=== PATIENT | male | born 1970 | race Caucasian/White ===

== ENCOUNTER → 2018-12-29 07:09 | Outpatient (CLI) | payer OTHER, SELFPAY ==
[2018-12-29 08:07] LABS: Hematocrit 43.7 % (41-53); Mean Corpuscular HGB Conc 34.4 % (30-36); Mean Corpuscular Hemoglobin 29.1 PG (26-34); Mean Corpuscular Volume 84.8 fL (80-100); Platelet Count 219 X10^3/uL (150-400); Red Blood Cell Count 5.16 X10^6/uL (4.5-5.9); Red Cell Distribution Width 13.3 % (11.6-14.8); White Blood Cell Count 6.2 X10^3/uL (4.5-11.0)
[2018-12-29 08:26] LABS: Alanine Aminotransferase 50 IU/L (21-72); Albumin 4.9 g/dL (3.5-5.0); Albumin Globulin Ratio 1.9 (1.0-2.8); Alkaline Phosphatase 58 U/L (38-126); Aspartate Aminotransferase 34 IU/L (17-59); BUN Creatinine Ratio 18.2 (6-22); Bilirubin Total 0.7 mg/dL (0.2-1.3); Blood Urea Nitrogen 20 mg/dL (9-20); Calcium 10.5 mg/dL (8.4-10.2); Carbon Dioxide 32 mmol/L (22-32); Chloride 99 mmol/L (98-107); Cholesterol 259 mg/dL (140-199); Estimated Glomerular Filt Rate > 60.0 mL/min (>60); Globulin 2.6 g/dL (1.7-4.1); Glucose 105 mg/dL (70-100); HDL Cholesterol 28 mg/dL (40-60); HEMOLYSIS < 15 (0-50); LDL Cholesterol Calculated 159 mg/dL (<100); Potassium 5.2 mmol/L (3.4-5.1); Sodium 140 mmol/L (137-145); Total Protein 7.5 g/dL (6.3-8.2); Triglycerides 358 mg/dL (35-150)
[2018-12-29 08:37] LABS: Microalbumi Creatinin Ratio Ur 3.8 ug/mg CR (<30); Microalbumin Urine Random < 0.6 mg/dL (0-1.6)
== END ==
PROVIDERS: Visit Provider Nurse Practitioner Family
DX: Z13.6 Encounter for screening for cardiovascular disorders (principal); I10 Essential (primary) hypertension; R10.812 Left upper quadrant abdominal tenderness
CPT/HCPCS: 36415; 80053; 80061; 82043; 82570; 85027

== ENCOUNTER → 2019-01-07 12:26 | Outpatient (CLI) | payer OTHER, SELFPAY ==
[2019-01-09 14:40] LABS: Urea Breath Test >18YRS NOT DETECTED
== END ==
PROVIDERS: PCP Nurse Practitioner Family; Visit Provider Nurse Practitioner Family
DX: R10.812 Left upper quadrant abdominal tenderness (principal)
CPT/HCPCS: 83013

== ENCOUNTER → 2019-01-25 11:39 | Outpatient (CLI) | payer OTHER, SELFPAY ==
--- NOTE | 2019-01-25 11:40 | DI.US.S_ITS ---
PROCEDURE: US ABDOMEN COMPLETE INDICATIONS: LUQ PAIN TECHNIQUE: Real-time scanning was performed of the abdominal and retroperitoneal organs, with image documentation. COMPARISON: [facility], MR, ANGIO ABDOMEN WITH&WITHOUT CONTRAST, 04/03/2009, 14:59. FINDINGS: Liver: Liver is diffusely increased in echogenicity. No focal hepatic abnormalities identified. Normal hepatic size. Gallbladder: No gallstones identified. Normal gallbladder wall. No pericholecystic fluid. Negative sonographic Roldan sign. Biliary ducts: Intrahepatic bile ducts are non-dilated. Extrahepatic bile duct caliber measures 3.0 mm. Normal is 6-7 mm or less in diameter, or 10 mm or less post-cholecystectomy. Pancreas: Visualized portions of the pancreas are sonographically normal. Spleen: Spleen is normal in size and homogeneous in echotexture. Kidneys: Kidneys are normal in size and echotexture. Right kidney measures 12.8 cm long; left kidney measures 13.5 cm long. No hydronephrosis or nephrolithiasis. No solid masses. Aorta: Visualized aorta is normal in caliber at less than 3 cm. Iliacs: Proximal common iliac arteries are normal in caliber at less than 2.5 cm. IVC: Intrahepatic inferior vena cava is patent. Miscellaneous: No free abdominal fluid. IMPRESSION: Increased hepatic echogenicity noted possibly related to hepatic steatosis but other sources of hepatocellular disease cannot be excluded. Recommend clinical correlation. Dictated by: Alber DEMARCO Interpreted: Tiffanie Perdue MD on 01/25/2019 at 13:12 Approved by: Tiffanie Perdue MD, PhD on 01/25/2019 at 13:56
== END ==
PROVIDERS: PCP Nurse Practitioner Family; Visit Provider Nurse Practitioner Family
DX: R10.812 Left upper quadrant abdominal tenderness (principal)
CPT/HCPCS: 76700

== ENCOUNTER 2019-03-15 07:19 | Day surgery (SDC) | payer OTHER, SELFPAY ==
[2019-03-04 07:27] VITALS: BMI 34.2
[2019-03-15] VITALS (11 sets, daily range): BP systolic 135–167; BP diastolic 81–105; PULSE 65–90; RESP 10–20; TEMP 35.8–36.4; O2SAT 96–100; BMI 32.1
--- NOTE | 2019-03-15 | PATH_ITS ---
[facility] Accession Number: [id number] . 01 Material submitted: . back - BACK . 01 Clinical history: . SOFT TISSUE MASS . 01 Diagnosis: Soft Tissue, Back, Excision: Lipoma with degenrative changes. MRV 03/17/2019 1436 Local . 01 Electronically signed: . Carmen Owen MD, Pathologist NPI- [id number] . 01 Gross description: . Received in formalin, labeled back soft tissue mass, is a 10.5 x 8.7 x 3.7 cm nunn-yellow fatty mass with a homogeneous unremarkable cut surface. Allied [employer] Instructor tissue submitted in cassettes A1-A5. ([id number]) /MRV 03/16/2019 1058 Local . 01 Pathologist provided ICD-10: D17.9 . 01 CPT . 641040 Performed at: 01 [facility] [place] [address], [place], [place] [id number] MD Rickey Lovell MD Phone: [phone]
[2019-03-15] MEDS: LACTATED RINGERS 1,000 ML 100 ML IV (07:45)
--- NOTE | 2019-03-15 08:59 | PM.HP.1 ---
History of Present Illness History of Present Illness Date Patient Seen: 03/15/19 Time Patient Seen: 09:00 Chief complaint: [id number] Narrative: 03/15/19-No interval changes in health since last H&P December 2018-This is a 48-year-old male who presents for evaluation of a soft tissue mass of his left back. He has a slowly growing symptomatic soft tissue mass overlying his left scapula. I would its size is now causing pain and interference with his work and his physical activity. No history of personal malignancy. No left upper extremity weakness or numbness. No history of coronary artery disease, valvular disease, arrhythmia, peripheral vascular disease, diabetes, stroke, pulmonary or renal insufficiency. They are a former smoker and not on anticoagulation Patient History Medical History BMI 34.0-34.9,adult (Acute) Chickenpox (Acute ~1987) Essential hypertension (Acute ~2014) Fractures (Acute ~1998) Left upper quadrant abdominal tenderness (Acute 2016) Mixed hyperlipidemia (Acute 01/07/19) MRSA (methicillin resistant staph aureus) culture positive (Acute ~2005) Subcutaneous nodule of back (Acute 2011) Varicose veins of left lower extremity (Acute 2008) Family & Social History Family History Father Hypertension Stroke Heart disease Mother No problems noted. Social History: household members spouse Tobacco & Substance use: Smoking Status Former smoker alcohol intake current alcohol intake frequency a few times a week Substance Use Type former substance user,crack/cocaine,amphetamines ,other Meds Home Medications and Allergies Home Medications Medication Instructions Recorded Confirmed Type cholecalciferol (vitamin D3) 50 2,000 unit PO DAILY 01/13/18 03/15/19 History mcg (2,000 unit) capsule multivitamin with minerals 1 tab PO DAILY 01/13/18 03/15/19 History omega-3 fatty acids 1,000 mg 1,000 mg PO DAILY 01/13/18 03/15/19 History capsule vitamin B complex 1 tab PO DAILY 01/13/18 03/15/19 History flaxseed oil 1,000 mg capsule 1,000 mg PO DAILY 12/28/18 03/15/19 History atorvastatin 20 mg tablet 20 mg PO BEDTIME #90 tab 01/07/19 03/15/19 Rx ibuprofen 200 mg tablet 600 mg PO DAILY PRN tab 01/07/19 03/15/19 History lisinopril 20 mg tablet 20 mg PO DAILY #90 tab 02/11/19 03/15/19 Rx lisinopril 20 1 tab PO DAILY #90 tab 02/11/19 03/15/19 Rx mg-hydrochlorothiazide 12.5 mg tablet Allergies Allergy/AdvReac Type Severity Reaction Status Date / Time No Known Drug Allergies Allergy Unverified 02/11/19 11:15 Review of Systems Review of Systems Narrative: A 10 point review of systems is negative except as noted in the HPI Exam Vital Signs (past 8 hours): - 03/15/19 07:45 Temperature 97.4 F L Pulse Rate 69 Respiratory Rate 16 Blood Pressure 135/81 Pulse Oximetry 100 Oxygen Delivery Method Room Air Narrative Exam Narrative: General-no acute distress, well nourished HEENT-moist mucous membranes, no scleral icterus Neck-supple, no lymphadenopathy Chest- non labored respirations, clear to auscultation bilaterally Cardiac-regular rate no peripheral edema Abdomen-soft, nontender, non distended Extremities-warm, well perfused Neurological-alert and oriented, no focal deficits Assessment & Plan Assessment and plan (1) Benign neoplasm of soft tissue of back: Current visit: No Status: Acute Assessment & Plan narrative: 48-year-old male with a large superficial soft tissue mass of his left upper back here for excision. His questions have been answered he is in agreement with this plan. Please refer to the H& P from December of 2018 for further detail.
[2019-03-15] MEDS: CEFAZOLIN 2 GM/100 ML FROZ.PIGGY IV (09:10)
--- NOTE | 2019-03-15 09:34 | SUR.OPER ---
Right lateral on rivera bag, head on pillow, gel axillary roll in place, bottom leg bent with gel pad under knee to foot, upper leg straight and supported with pillows. Upper arm supported by pillows and secured over bottom arm to padded arm board. Safety belt at hip, tape over blanket lower legs.
[2019-03-15] MEDS: BUPIVACAINE 0.25% (PF) VIAL 30 ML INJ (09:49)
[2019-03-15] MEDS: fentaNYL 100 MCG/2 ML INJ IV (10:35)
[2019-03-15] MEDS: HYDROCODONE/ACET 5/325 TABLET 1 TAB PO (10:48)
--- NOTE | 2019-03-15 10:50 | PM.OP.1 ---
Operative Date/Time/Diagnoses Date of procedure: 03/15/19 Time of procedure: 10:50 Pre-op diagnosis: Lipoma back Post-op diagnosis: same Procedure & Clinicians Procedure: Excision soft tissue tumor left back Same procedure as scheduled: Yes Indications: This 48-year-old male with a slowly enlarging soft tissue mass of his left back near the scapula currently symptomatic. Surgeon: Umesh Jackson Click Yes if Unassisted: Yes Anesthesia Type: General Operative Notes Findings: 5 in soft tissue mass consistent with a lipoma Specimen(s): other (Soft tissue mass) Estimated Blood Loss (mL): 20 Procedure in detail: The patient was brought to the operating room placed supine on the table. Bilateral lower extremity compression devices were applied. General anesthesia was induced and he was intubated with an LMA. 2 g of Ancef were infused prior to skin incision. Time-out was performed ensure the correct patient procedure necessary equipment within the operating room. He was then placed in the right lateral decubitus position. Was then prepped and draped in usual sterile fashion. A horizontal incision was made over the soft tissue mass. The mass was well encapsulated and superficial to the musculature. Was dissected circumferentially in all directions. There was removed EN bloc and passed off the field as specimen. Measured 5 inches in maximum diameter Hemostasis was achieved. The wound was irrigated with 1 L sterile saline. The subcutaneous tissues were reapproximated using 3 0 Vicryl sutures. The skin closed with interrupted mattress nylon sutures. The skin was dressed with Xeroform gauze and Medipore tape. Patient tolerated procedure well was extubated transferred to the postoperative care unit in stable condition. Complications: none Post-operative Condition: stable Disposition: same day surgery
== END 2019-03-15 11:30 | disposition home or self-care (01) ==
PROVIDERS: PCP Nurse Practitioner Family; Visit Provider Surgery
PROC: (CPT 21931; principal; 2019-03-15 08:45)
DX: D17.1 Benign lipomatous neoplasm of skin and subcutaneous tissue of trunk (principal); I10 Essential (primary) hypertension; E66.9 Obesity, unspecified; Z68.34 Body mass index [BMI] 34.0-34.9, adult
CPT/HCPCS: 21931; J0690; J1100; J2405; J2704; J3010

== ENCOUNTER 2019-03-21 07:22 | Day surgery (SDC) | payer OTHER, SELFPAY ==
--- NOTE | 2019-03-21 | PATH_ITS ---
[facility] Accession Number: [id number] . 01 Material submitted: . esophagus, E-G Junction - GE JUNCTION . 02 Diagnosis: Gastroesophageal Junction, Biopsies: Squamocolumnar junction mucosa with mild reactive features of reflux esophagitis. Negative for specialized intestinal metaplasia on alcian blue stain. Negative for dysplasia or malignancy. V 03/23/2019 1208 Local . 02 Electronically signed: . Jordan Oliver MD, PhD, Pathologist NPI- [id number] . 01 Gross description: . GE JUNCTION: Received in formalin are 3 fragment(s) of nunn, soft tissue measuring 0.1 x 0.1 x 0.1 cm to 0.2 x 0.2 x 0.2 cm submitted entirely in 1 cassette(s) /[facility] 03/21/2019 1936 Local . 02 Microscopic: . An alcian blue stain is performed to evaluate for specialized intestinal metaplasia, and is negative for goblet cells. A control stain shows appropriate reactivity. . 02 Pathologist provided ICD-10: K21.9 . 02 CPT . 213717, [id number] Performed at: 01 [facility] [address] [place] [address], [place], [place] [id number] MD Rickey Lovell MD Phone: [phone] Performed at: 02 [facility] [address] [place], [place] [id number] MD Ana Piedra MD Phone: [phone]
[2019-03-21 07:50] VITALS: BP 106/69; PULSE 74; RESP 15; TEMP 36.6; O2SAT 98
[2019-03-21] MEDS: SODIUM CHLORIDE 0.9% 1,000 ML 200 ML IV (08:03)
--- NOTE | 2019-03-21 08:39 | PM.PREOP ---
Pre-operative Note Interval Note History & Physical reviewed/Exam performed by Physician: Yes Changes to H&P: No ASA Class (for procedural sedation): II
--- NOTE | 2019-03-21 09:26 | P.OP.ENDO_ITS ---
Operative Date/Time/Diagnoses Date of procedure: 03/21/19 Time of procedure: 09:27 Pre-op diagnosis: Screening colonoscopy, screening esophagoduodenoscopy, gastroesophageal reflux disease Post-op diagnosis: same Procedure & Clinicians Study performed: Colonoscopy Esophagoduodenoscopy Same procedure as scheduled: Yes Indications: 48-year-old male history of longstanding gastroesophageal reflux presents for screening EGD and first-time colonoscopy. Surgeon: Umesh Jackson Procedure Notes SCOAP/Timeout: Performed Procedure in detail: Patient placed in left lateral decubitus position. Time out was performed. Procedural sedation was administered with Versed and Fentanyl. A bite block was placed. the scope was inserted into the mouth and advanced through the esophagus and into the stomach. The pylorus was intubated and the duodenum was normal. The scope was retroflexed within the stomach and there was a hiatal hernia. No ulcers, or gastritis. The scope was withdrawn into the esophagus the Z line was seen at 35 cm from the incisions. There was no jain's esophagitis or masses or strictures. 4 random biopsies of the Z line were taken with forceps. Stomach was desufflated and scope removed. Patient maria eugenia erated procedure well. Patient placed in left lateral decubitus position. Time out was performed. Procedural sedation was administered with Versed and Fentanyl. A rectal exam demonstrated no external hemorrhoids no internal masses. Colonoscopy scope was placed into the rectum and advanced through the colon to the cecum. The ileocecal valve was identified. The scope was then slowly withdrawn examining colon thoroughly in all directions. The colonoscopy was notable for the following 1. Sigmoid diverticulosis 2. Grade 1 internal hemorrhoids 3. Quality of prep excellent Scope withdrawal time: 6 Sedation minutes: 30 Findings: diverticulosis and internal hemorrhoids Specimen(s): none sent Complications: none Impression: Diverticulosis Post-procedure Recommendations: Colonscopy in 10 years Disposition: same day surgery
[2019-03-21] MEDS: LIDOCAINE 4% SOLN 50 ML 20 ML TOP (09:28)
[2019-03-21] MEDS: fentaNYL 250 MCG/5 ML INJ IV (09:29)
[2019-03-21] MEDS: MIDAZOLAM 5 MG/5 ML VIAL IV (09:29)
[2019-03-21 09:31] VITALS: BP 131/88; PULSE 82; RESP 22; TEMP 36.4; O2SAT 94
[2019-03-21 09:36] VITALS: BP 124/75; PULSE 70; RESP 10; O2SAT 92
[2019-03-21 09:41] VITALS: BP 107/65; PULSE 88; RESP 13; O2SAT 96
[2019-03-21 09:43] VITALS: BP 110/75; PULSE 85; RESP 10; TEMP 37.3; O2SAT 95
[2019-03-21 10:05] VITALS: BP 107/63; PULSE 77; RESP 12; TEMP 36.5; O2SAT 98
--- NOTE | 2019-04-11 13:06 | PM.HP.1 ---
History of Present Illness History of Present Illness Date Patient Seen: 03/21/19 Time Patient Seen: 13:06 Chief complaint: [id number] Narrative: Patient presents for colorectal screening. They have never had any previous examination for such. In addition he has significant gastroesophageal reflux disease for which esophagoduodenoscopy has been recommended. No personal or family history of colon cancer. On further history denies any recent gastrointestinal symptoms. No nausea, vomiting, abdominal pain, loss of appetite, unexplained weight loss, change in bowel habits, diarrhea, constipation, melena, hematochezia, or bright red blood per rectum. Patient History Medical History BMI 34.0-34.9,adult (Acute) Chickenpox (Acute ~1987) Essential hypertension (Acute ~2014) Fractures (Acute ~1998) Left upper quadrant abdominal tenderness (Acute 2016) Mixed hyperlipidemia (Acute 01/07/19) MRSA (methicillin resistant staph aureus) culture positive (Acute ~2005) Subcutaneous nodule of back (Acute 2011) Varicose veins of left lower extremity (Acute 2008) Family & Social History Family History Father Hypertension Stroke Heart disease Mother No problems noted. Social History: household members significant other Tobacco & Substance use: Smoking Status Former smoker alcohol intake current alcohol intake frequency a few times a week Substance Use Type former substance user,crack/cocaine,amphetamines ,other Meds Home Medications and Allergies Home Medications Medication Instructions Recorded Confirmed Type cholecalciferol (vitamin D3) 50 2,000 unit PO DAILY 01/13/18 03/30/19 History mcg (2,000 unit) capsule multivitamin with minerals 1 tab PO DAILY 01/13/18 03/30/19 History omega-3 fatty acids 1,000 mg 1,000 mg PO DAILY 01/13/18 03/30/19 History capsule vitamin B complex 1 tab PO DAILY 01/13/18 03/30/19 History flaxseed oil 1,000 mg capsule 1,000 mg PO DAILY 12/28/18 03/30/19 History ibuprofen 200 mg tablet 600 mg PO DAILY PRN tab 01/07/19 03/30/19 History lisinopril 20 mg tablet 20 mg PO DAILY #90 tab 02/11/19 03/30/19 Rx acetaminophen [Tylenol] 650 mg PO QID PRN #60 cap 03/15/19 03/30/19 Rx atorvastatin 20 mg PO DAILY 03/21/19 03/30/19 History lisinopril 20 1 tab PO DAILY #90 tab 03/29/19 03/30/19 Rx mg-hydrochlorothiazide 12.5 mg tablet Allergies Allergy/AdvReac Type Severity Reaction Status Date / Time adhesive tape Allergy Intermediate Rash, Verified 03/30/19 09:19 redness skin Review of Systems Review of Systems Narrative: A 10 point review of systems is negative except as noted in the HPI Exam Vital Signs (past 8 hours): Oxygen Delivery Method Room Air Narrative Exam Narrative: General-no acute distress, well nourished HEENT-moist mucous membranes, no scleral icterus Neck-supple, no lymphadenopathy Chest- non labored respirations, clear to auscultation bilaterally Cardiac-regular rate no peripheral edema Abdomen-soft, nontender, non distended Extremities-warm, well perfused Neurological-alert and oriented, no focal deficits Assessment & Plan Assessment and plan (1) Screening for colon cancer: Current visit: No Status: Acute (2) GERD (gastroesophageal reflux disease): Current visit: No Status: Acute Assessment & Plan narrative: The patient requires colorectal screening and colonoscopy is recommended. In addition he has significant symptomatic gastroesophageal reflux disease and esophagoduodenoscopy is indicated. Technical details were discussed. Risks, benefits, alternatives explained. Risks including but not limited to myocardial infarction, aspiration, bleeding, pain, missed lesion, incomplete examination, need for further radiographic studies, colonic perforation, and need for major abdominal surgery were discussed. All questions were answered to their satisfaction, and they are in agreement with this plan.
== END 2019-03-21 10:07 | disposition home or self-care (01) ==
PROVIDERS: PCP Nurse Practitioner Family; Visit Provider Surgery
PROC: 0DJ08ZZ Inspection of Upper Intestinal Tract, Via Natural or Artificial Opening Endoscopic (ICD-10-PCS; CPT 43235; principal; 2019-03-21 08:30)
PROC: 0DJD8ZZ Inspection of Lower Intestinal Tract, Via Natural or Artificial Opening Endoscopic (ICD-10-PCS; CPT 45378; 2019-03-21 08:30)
DX: Z12.11 Encounter for screening for malignant neoplasm of colon (principal); K57.30 Diverticulosis of large intestine without perforation or abscess without bleeding; K64.0 First degree hemorrhoids; K21.9 Gastro-esophageal reflux disease without esophagitis; K44.9 Diaphragmatic hernia without obstruction or gangrene
CPT/HCPCS: 43239; 45378; 99152; 99153; J2250; J3010

== ENCOUNTER → 2019-10-21 07:32 | Outpatient (CLI) | payer OTHER, SELFPAY ==
[2019-10-21 09:10] LABS: BUN Creatinine Ratio 17.3 (6-22); Blood Urea Nitrogen 19 mg/dL (9-20); Calcium 10.1 mg/dL (8.4-10.2); Carbon Dioxide 25 mmol/L (22-32); Chloride 99 mmol/L (98-107); Cholesterol 196 mg/dL (140-199); Estimated Glomerular Filt Rate > 60.0 mL/min (>60); Glucose 98 mg/dL (70-100); HDL Cholesterol 32 mg/dL (40-60); HEMOLYSIS < 15 (0-50); LDL Cholesterol Calculated 108 mg/dL (<100); Potassium 4.7 mmol/L (3.4-5.1); Sodium 134 mmol/L (137-145); Triglycerides 281 mg/dL (35-150)
== END ==
PROVIDERS: PCP Nurse Practitioner Family; Referring Provider Nurse Practitioner Family; Visit Provider Nurse Practitioner Family
DX: I10 Essential (primary) hypertension (principal); E78.2 Mixed hyperlipidemia
CPT/HCPCS: 36415; 80048; 80061

== ENCOUNTER → 2020-04-03 07:12 | Outpatient (CLI) | payer OTHER, SELFPAY ==
[2020-04-03 09:04] LABS: Hematocrit 42.4 % (41-53); Hemoglobin 14.1 g/dL (13.5-17.5); Mean Corpuscular HGB Conc 33.3 % (30-36); Mean Corpuscular Hemoglobin 28.6 PG (26-34); Mean Corpuscular Volume 85.9 fL (80-100); Platelet Count 225 X10^3/uL (150-400); Red Blood Cell Count 4.93 X10^6/uL (4.5-5.9); Red Cell Distribution Width 13.3 % (11.6-14.8); White Blood Cell Count 8.3 X10^3/uL (4.5-11.0)
[2020-04-03 09:18] LABS: HEMOLYSIS < 15 (0-50)
[2020-04-03 09:28] LABS: Alanine Aminotransferase 46 IU/L (<50); Albumin 4.4 g/dL (3.5-5.0); Albumin Globulin Ratio 1.5 (1.0-2.8); Alkaline Phosphatase 53 U/L (38-126); Aspartate Aminotransferase 31 IU/L (17-59); BUN Creatinine Ratio 23.2 (6-22); Bilirubin Total 0.3 mg/dL (0.2-1.3); Blood Urea Nitrogen 22 mg/dL (9-20); Calcium 9.6 mg/dL (8.4-10.2); Carbon Dioxide 28 mmol/L (22-32); Chloride 102 mmol/L (98-107); Cholesterol 200 mg/dL (140-199); Estimated Glomerular Filt Rate > 60.0 mL/min (>60); Globulin 2.9 g/dL (1.7-4.1); Glucose 101 mg/dL (70-100); HDL Cholesterol 36 mg/dL (40-60); LDL Cholesterol Calculated 122 mg/dL (<100); Potassium 4.5 mmol/L (3.4-5.1); Sodium 137 mmol/L (137-145); Total Protein 7.3 g/dL (6.3-8.2); Triglycerides 212 mg/dL (35-150)
[2020-04-03 09:54] LABS: Prostate Specific Antigen Scrn 2.03 ng/mL (0.1-4.0)
[2020-04-03 10:28] LABS: TSH w/ Reflex to FT4 1.65 uIU/mL (0.47-4.68)
[2020-04-03 10:34] LABS: Vitamin B12 Reflex MMA if <400 805 pg/mL (239-931)
[2020-04-05 15:58] LABS: Testosterone 143 ng/dL (71.8-623)
== END ==
PROVIDERS: PCP Nurse Practitioner Family; Referring Provider Nurse Practitioner Family; Visit Provider Nurse Practitioner Family
DX: Z00.00 Encounter for general adult medical examination without abnormal findings (principal); R53.83 Other fatigue; R68.82 Decreased libido; E78.2 Mixed hyperlipidemia; Z12.5 Encounter for screening for malignant neoplasm of prostate
CPT/HCPCS: 36415; 80053; 80061; 82607; 84403; 84443; 85027; G0103

== ENCOUNTER → 2020-04-18 07:15 | Outpatient (CLI) | payer OTHER, SELFPAY ==
[2020-04-18 08:38] LABS: Cholesterol 198 mg/dL (140-199); HDL Cholesterol 34 mg/dL (40-60); LDL Cholesterol Calculated 109 mg/dL (<100); Triglycerides 273 mg/dL (35-150)
[2020-04-18 09:07] LABS: Luteinizing Hormone 1.05 mIU/mL
[2020-04-18 09:13] LABS: Testosterone 245 ng/dL (71.8-623)
== END ==
PROVIDERS: PCP Nurse Practitioner Family; Referring Provider Nurse Practitioner Family; Visit Provider Nurse Practitioner Family
DX: R79.89 Other specified abnormal findings of blood chemistry (principal); E78.2 Mixed hyperlipidemia
CPT/HCPCS: 36415; 80061; 83001; 83002; 84403

== ENCOUNTER → 2020-04-26 15:52 | Outpatient (CLI) | payer OTHER, SELFPAY ==
[2020-04-26 17:54] LABS: Prostate Specific Antigen Scrn 2.08 ng/mL (0.1-4.0)
== END ==
PROVIDERS: PCP Nurse Practitioner Family; Referring Provider Nurse Practitioner Family; Visit Provider Nurse Practitioner Family
DX: R79.89 Other specified abnormal findings of blood chemistry (principal); Z12.5 Encounter for screening for malignant neoplasm of prostate
CPT/HCPCS: 36415; G0103

== ENCOUNTER → 2020-07-07 10:05 | Outpatient (CLI) | payer OTHER, SELFPAY ==
[2020-07-07 10:36] LABS: Hematocrit 42.8 % (41-53); Hemoglobin 14.4 g/dL (13.5-17.5); Mean Corpuscular HGB Conc 33.6 % (30-36); Mean Corpuscular Volume 86.3 fL (80-100); Platelet Count 203 X10^3/uL (150-400); Red Blood Cell Count 4.97 X10^6/uL (4.5-5.9); Red Cell Distribution Width 13.7 % (11.6-14.8); White Blood Cell Count 8.4 X10^3/uL (4.5-11.0)
[2020-07-09 10:53] LABS: Prostate Specific Antigen Scrn 2.53 ng/mL (0.1-4.0)
[2020-07-09 10:55] LABS: Testosterone 310 ng/dL (71.8-623)
== END ==
PROVIDERS: PCP Nurse Practitioner Family; Referring Provider Nurse Practitioner Family; Visit Provider Nurse Practitioner Family
DX: R79.89 Other specified abnormal findings of blood chemistry (principal)
CPT/HCPCS: 36415; 84403; 85027; G0103

== ENCOUNTER → 2020-10-05 07:49 | Outpatient (CLI) | payer OTHER, SELFPAY ==
[2020-10-05 09:41] LABS: Alanine Aminotransferase 48 IU/L (<50); Albumin 4.2 g/dL (3.5-5.0); Albumin Globulin Ratio 1.6 (1.0-2.8); Alkaline Phosphatase 48 U/L (38-126); Aspartate Aminotransferase 35 IU/L (17-59); BUN Creatinine Ratio 15.8 (6-22); Bilirubin Total 0.4 mg/dL (0.2-1.3); Blood Urea Nitrogen 16 mg/dL (9-20); Calcium 10.1 mg/dL (8.4-10.2); Carbon Dioxide 31 mmol/L (22-32); Chloride 100 mmol/L (98-107); Estimated Glomerular Filt Rate > 60.0 mL/min (>60); Globulin 2.6 g/dL (1.7-4.1); Glucose 99 mg/dL (70-100); HEMOLYSIS < 15 (0-50); Potassium 4.8 mmol/L (3.4-5.1); Sodium 137 mmol/L (137-145); Total Protein 6.8 g/dL (6.3-8.2)
[2020-10-05 10:09] LABS: Testosterone 398 ng/dL (71.8-623)
== END ==
PROVIDERS: PCP Nurse Practitioner Family; Referring Provider Nurse Practitioner Family; Visit Provider Nurse Practitioner Family
DX: I10 Essential (primary) hypertension (principal); R79.89 Other specified abnormal findings of blood chemistry
CPT/HCPCS: 36415; 80053; 84403

== ENCOUNTER → 2021-12-03 09:11 | Outpatient (CLI) | payer OTHER, SELFPAY ==
[2021-12-03 10:35] LABS: Add Manual Diff / Slide Review NO; Basophils Absolute Auto 0 /uL (0-100); Basophils Percent Auto 0.5 % (0-2); Eosinophils Absolute Auto 0 /uL (0-450); Eosinophils Percent Auto 0.7 % (2-4); Hematocrit 48.1 % (41-53); Hemoglobin 15.9 g/dL (13.5-17.5); Lymphocytes Absolute Auto 2000 /uL (1100-4500); Lymphocytes Percent Auto 30.9 % (25-40); Mean Corpuscular HGB Conc 33.1 % (30-36); Mean Corpuscular Hemoglobin 28.4 PG (26-34); Mean Corpuscular Volume 86.1 fL (80-100); Monocytes Absolute Auto 500 /uL (0-900); Monocytes Percent Auto 7.5 % (3-14); Neutrophils Absolute Auto 3900 /uL (1500-7000); Neutrophils Percent Auto 60.4 % (50-75); Platelet Count 214 X10^3/uL (150-400); Red Blood Cell Count 5.59 X10^6/uL (4.5-5.9); Red Cell Distribution Width 14.1 % (11.6-14.8); White Blood Cell Count 6.5 X10^3/uL (4.5-11.0)
[2021-12-03 11:01] LABS: Alanine Aminotransferase 54 IU/L (<50); Albumin 4.9 g/dL (3.5-5.0); Albumin Globulin Ratio 1.4 (1.0-2.8); Alkaline Phosphatase 52 U/L (38-126); Aspartate Aminotransferase 35 IU/L (17-59); BUN Creatinine Ratio 18.4 (6-22); Bilirubin Total 0.6 mg/dL (0.2-1.3); Blood Urea Nitrogen 19 mg/dL (9-20); Calcium 9.9 mg/dL (8.4-10.2); Carbon Dioxide 32 mmol/L (22-32); Chloride 94 mmol/L (98-107); Cholesterol 221 mg/dL (140-199); Estimated Glomerular Filt Rate > 60 mL/min (>60); Globulin 3.5 g/dL (1.7-4.1); Glucose 102 mg/dL (70-100); HDL Cholesterol 36 mg/dL (40-60); HEMOLYSIS < 15 (0-50); LDL Cholesterol Calculated 122 mg/dL (<100); Potassium 4.5 mmol/L (3.4-5.1); Sodium 137 mmol/L (137-145); Total Protein 8.4 g/dL (6.3-8.2); Triglycerides 316 mg/dL (35-150)
[2021-12-03 11:29] LABS: Prostate Specific Antigen 2.62 ng/mL (0.10-4.00)
[2021-12-20 10:17] LABS: Testosterone Free 12.78 ng/dL (5.00-21.00); Testosterone Total 399.3 ng/dL (264.0-916.0)
== END ==
PROVIDERS: PCP Family Medicine; Referring Provider Family Medicine; Visit Provider Family Medicine
DX: E78.2 Mixed hyperlipidemia (principal); I10 Essential (primary) hypertension; R53.83 Other fatigue; R79.89 Other specified abnormal findings of blood chemistry; Z68.34 Body mass index [BMI] 34.0-34.9, adult; Z13.9 Encounter for screening, unspecified; Z12.5 Encounter for screening for malignant neoplasm of prostate
CPT/HCPCS: 36415; 80053; 80061; 84153; 84402; 84403; 85025

== ENCOUNTER → 2022-01-29 09:43 | Outpatient (CLI) | payer OTHER, SELFPAY ==
[2022-01-29 10:53] LABS: Influenza A - CEPHEID Flu A NEGATIVE (NEGATIVE); Influenza B - CEPHEID Flu B NEGATIVE (NEGATIVE); Respiratory Syncytial Virus Negative (Negative)
[2022-01-29 11:25] LABS: COVID-19 CEPHEID 4-PLEX PCR Negative (Negative)
== END ==
PROVIDERS: PCP Family Medicine; Visit Provider Nurse Practitioner Family
DX: R05.9 Cough, unspecified (principal)
CPT/HCPCS: 0241U

== ENCOUNTER → 2022-03-18 09:19 | Outpatient (CLI) | payer OTHER, SELFPAY ==
--- NOTE | 2022-03-18 | DI.CT.S_ITS ---
PROCEDURE: CT SINUS SCREEN WO CON INDICATIONS: Chronic pansinusitis TECHNIQUE: Noncontrast 3.0 mm axial images acquired from the frontal sinuses to the mid-sella, with coronal and sagittal reformats. For radiation dose reduction, the following was used: automated exposure control, adjustment of mA and/or kV according to patient size. COMPARISON: None. FINDINGS: Image quality: Excellent. Maxillary Sinuses: No bony remodeling or destruction. There is a left maxillary sinus mucous retention cyst seen, with a calcified/ossified wall, as on series 4, image 22 measuring 1.5 cm. The maxillary sinuses otherwise appear clear. Ethmoid Air Cells: No bony remodeling or destruction. Sinuses are clear. Sphenoid Sinuses: No bony remodeling or destruction. Sinuses are clear. Frontal Sinuses: No bony remodeling or destruction. Sinuses are clear. Ostiomeatal Complexes: Ostiomeatal complexes are patent, yet they are constitutionally narrowed with bilateral Gilberto cells. Miscellaneous: Visualized intra-orbital contents are normal. No mahogany bullosa or paradoxical turbinate curvature. There is mild leftward nasal septal deviation. There is a leftward directed bony nasal septal spur. IMPRESSION: No findings of active sinusitis can be seen. There is an apparent mucous retention cyst with a calcified/ossified wall involving the left maxillary sinus. Constitutionally narrowed ostiomeatal complexes, with bilateral Gilberto cells. Mild leftward nasal septal deviation, with a leftward directed bony nasal septal spur. Dictated by: Jace Solano M.D. on 03/18/2022 at 9:08 Approved by: Jace Solano M.D. on 03/18/2022 at 9:09
== END ==
PROVIDERS: PCP Family Medicine; Referring Provider Otolaryngology; Visit Provider Otolaryngology
DX: J32.4 Chronic pansinusitis (principal); J34.1 Cyst and mucocele of nose and nasal sinus; J34.2 Deviated nasal septum
CPT/HCPCS: 70486

== ENCOUNTER → 2022-05-01 08:38 | Outpatient (CLI) | payer OTHER, SELFPAY ==
[2022-05-01 09:56] LABS: Add Manual Diff / Slide Review NO; Basophils Absolute Auto 100 /uL (0-100); Basophils Percent Auto 0.9 % (0-2); Eosinophils Absolute Auto 100 /uL (0-450); Eosinophils Percent Auto 1.2 % (2-4); Hematocrit 45.3 % (41-53); Hemoglobin 15.3 g/dL (13.5-17.5); Lymphocytes Absolute Auto 2300 /uL (1100-4500); Lymphocytes Percent Auto 30.9 % (25-40); Mean Corpuscular HGB Conc 33.6 % (30-36); Mean Corpuscular Hemoglobin 28.7 PG (26-34); Mean Corpuscular Volume 85.4 fL (80-100); Monocytes Absolute Auto 700 /uL (0-900); Monocytes Percent Auto 8.7 % (3-14); Neutrophils Absolute Auto 4400 /uL (1500-7000); Neutrophils Percent Auto 58.3 % (50-75); Platelet Count 219 X10^3/uL (150-400); Red Blood Cell Count 5.31 X10^6/uL (4.5-5.9); Red Cell Distribution Width 13.6 % (11.6-14.8); White Blood Cell Count 7.6 X10^3/uL (4.5-11.0)
[2022-05-01 10:18] LABS: Alanine Aminotransferase 55 IU/L (<50); Albumin 4.6 g/dL (3.5-5.0); Albumin Globulin Ratio 1.5 (1.0-2.8); Alkaline Phosphatase 54 U/L (38-126); Aspartate Aminotransferase 36 IU/L (17-59); Bilirubin Total 0.5 mg/dL (0.2-1.3); Blood Urea Nitrogen 19 mg/dL (9-20); Calcium 9.9 mg/dL (8.4-10.2); Carbon Dioxide 30 mmol/L (22-32); Chloride 98 mmol/L (98-107); Cholesterol 196 mg/dL (140-199); Estimated Glomerular Filt Rate > 60 mL/min (>60); Glucose 92 mg/dL (70-100); HDL Cholesterol 36 mg/dL (40-60); HEMOLYSIS < 15 (0-50); LDL Cholesterol Calculated 104 mg/dL (<100); Potassium 4.9 mmol/L (3.4-5.1); Sodium 137 mmol/L (137-145); Total Protein 7.6 g/dL (6.3-8.2); Triglycerides 281 mg/dL (35-150)
[2022-05-01 10:45] LABS: Prostate Specific Antigen 2.91 ng/mL (0.10-4.00)
[2022-05-15 09:14] LABS: Percent Free Testosterone 2.71 % (1.50-4.20); Testosterone Free 18.25 ng/dL (5.00-21.00); Testosterone Total 673.3 ng/dL (264.0-916.0)
== END ==
PROVIDERS: PCP Family Medicine; Referring Provider Family Medicine; Visit Provider Family Medicine
DX: E78.2 Mixed hyperlipidemia (principal); I10 Essential (primary) hypertension; R79.89 Other specified abnormal findings of blood chemistry
CPT/HCPCS: 36415; 80053; 80061; 84153; 84402; 84403; 85025

== ENCOUNTER → 2022-12-24 07:39 | Outpatient (CLI) | payer OTHER, SELFPAY ==
[2022-12-24 08:33] LABS: Add Manual Diff / Slide Review NO; Basophils Absolute Auto 100 /uL (0-100); Basophils Percent Auto 0.9 % (0-2); Eosinophils Absolute Auto 100 /uL (0-450); Hematocrit 43.1 % (41-53); Hemoglobin 14.5 g/dL (13.5-17.5); Lymphocytes Absolute Auto 1700 /uL (1100-4500); Lymphocytes Percent Auto 29.8 % (25-40); Mean Corpuscular HGB Conc 33.7 % (30-36); Mean Corpuscular Volume 85.8 fL (80-100); Monocytes Absolute Auto 500 /uL (0-900); Monocytes Percent Auto 9.4 % (3-14); Neutrophils Absolute Auto 3300 /uL (1500-7000); Neutrophils Percent Auto 57.9 % (50-75); Platelet Count 199 X10^3/uL (150-400); Red Blood Cell Count 5.01 X10^6/uL (4.5-5.9); Red Cell Distribution Width 13.8 % (11.6-14.8); White Blood Cell Count 5.6 X10^3/uL (4.5-11.0)
[2022-12-24 08:52] LABS: Alanine Aminotransferase 41 IU/L (<50); Albumin 4.3 g/dL (3.5-5.0); Albumin Globulin Ratio 1.5 (1.0-2.8); Alkaline Phosphatase 47 U/L (38-126); Aspartate Aminotransferase 27 IU/L (17-59); BUN Creatinine Ratio 19.1 (6-22); Bilirubin Total 0.5 mg/dL (0.2-1.3); Blood Urea Nitrogen 18 mg/dL (9-20); Calcium 9.7 mg/dL (8.4-10.2); Carbon Dioxide 27 mmol/L (22-32); Chloride 100 mmol/L (98-107); Cholesterol 197 mg/dL (140-199); Estimated Glomerular Filt Rate > 60 mL/min (>60); Globulin 2.8 g/dL (1.7-4.1); Glucose 108 mg/dL (70-100); HDL Cholesterol 31 mg/dL (40-60); HEMOLYSIS < 15 (0-50); Potassium 4.3 mmol/L (3.4-5.1); Sodium 134 mmol/L (137-145); Total Protein 7.1 g/dL (6.3-8.2); Triglycerides 442 mg/dL (35-150)
[2022-12-24 09:13] LABS: TSH w/ Reflex to FT4 1.57 uIU/mL (0.47-4.68)
[2022-12-24 09:14] LABS: Prostate Specific Antigen 1.84 ng/mL (0.10-4.00)
[2023-01-02 09:21] LABS: Percent Free Testosterone 2.93 % (1.50-4.20); Testosterone Free 12.68 ng/dL (5.00-21.00); Testosterone Total 432.8 ng/dL (264.0-916.0)
== END ==
PROVIDERS: PCP Family Medicine; Referring Provider Family Medicine; Visit Provider Family Medicine
DX: R79.89 Other specified abnormal findings of blood chemistry (principal); I10 Essential (primary) hypertension; E78.2 Mixed hyperlipidemia
CPT/HCPCS: 36415; 80053; 80061; 84153; 84402; 84403; 84443; 85025

== ENCOUNTER → 2023-05-12 07:27 | Outpatient (CLI) | payer OTHER, SELFPAY ==
[2023-05-12 08:31] LABS: Add Manual Diff / Slide Review NO; Basophils Absolute Auto 100 /uL (0-100); Basophils Percent Auto 0.9 % (0-2); Eosinophils Absolute Auto 100 /uL (0-450); Eosinophils Percent Auto 1.3 % (2-4); Hematocrit 45.6 % (41-53); Hemoglobin 15.2 g/dL (13.5-17.5); Lymphocytes Absolute Auto 2000 /uL (1100-4500); Lymphocytes Percent Auto 33.5 % (25-40); Mean Corpuscular HGB Conc 33.3 % (30-36); Mean Corpuscular Hemoglobin 28.5 PG (26-34); Mean Corpuscular Volume 85.6 fL (80-100); Monocytes Absolute Auto 500 /uL (0-900); Monocytes Percent Auto 8.2 % (3-14); Neutrophils Absolute Auto 3300 /uL (1500-7000); Neutrophils Percent Auto 56.1 % (50-75); Platelet Count 215 X10^3/uL (150-400); Red Blood Cell Count 5.33 X10^6/uL (4.5-5.9); Red Cell Distribution Width 13.7 % (11.6-14.8); White Blood Cell Count 5.9 X10^3/uL (4.5-11.0)
[2023-05-12 08:39] LABS: Hemoglobin A1C% w Est Avg Glu 5.8 % (4.0-6.0)
[2023-05-12 09:06] LABS: HEMOLYSIS < 15 (0-50)
[2023-05-12 09:23] LABS: Alanine Aminotransferase 41 IU/L (<50); Albumin 4.5 g/dL (3.5-5.0); Albumin Globulin Ratio 1.7 (1.0-2.8); Alkaline Phosphatase 45 U/L (38-126); Aspartate Aminotransferase 27 IU/L (17-59); BUN Creatinine Ratio 18.1 (6-22); Bilirubin Total 0.7 mg/dL (0.2-1.3); Blood Urea Nitrogen 19 mg/dL (9-20); Calcium 9.8 mg/dL (8.4-10.2); Carbon Dioxide 32 mmol/L (22-32); Chloride 102 mmol/L (98-107); Cholesterol 170 mg/dL (140-199); Estimated Glomerular Filt Rate > 60 mL/min (>60); Globulin 2.7 g/dL (1.7-4.1); Glucose 95 mg/dL (70-100); HDL Cholesterol 29 mg/dL (40-60); LDL Cholesterol Calculated 101 mg/dL (<100); Potassium 4.4 mmol/L (3.4-5.1); Sodium 139 mmol/L (137-145); Total Protein 7.2 g/dL (6.3-8.2); Triglycerides 199 mg/dL (35-150)
[2023-05-12 09:38] LABS: TSH w/ Reflex to FT4 1.67 uIU/mL (0.47-4.68)
[2023-05-12 09:55] LABS: Prostate Specific Antigen 4.06 ng/mL (0.10-4.00)
[2023-05-17 18:42] LABS: Testosterone % Fr + Wkly bound 44.8 % (9.0-46.0); Testosterone Fr+Wkly bound 141.2 ng/dL (40.0-250.0); Testosterone, Total 315.2 ng/dL (264.0-916.0)
== END ==
PROVIDERS: PCP Family Medicine; Referring Provider Family Medicine; Visit Provider Family Medicine
DX: R73.03 Prediabetes (principal); R79.89 Other specified abnormal findings of blood chemistry; R53.83 Other fatigue; R68.82 Decreased libido; E78.2 Mixed hyperlipidemia; K52.9 Noninfective gastroenteritis and colitis, unspecified; I10 Essential (primary) hypertension
CPT/HCPCS: 36415; 80053; 80061; 83036; 84153; 84403; 84443; 85025

== ENCOUNTER → 2023-09-08 06:55 | Outpatient (CLI) | payer OTHER, SELFPAY ==
[2023-09-08 08:08] LABS: Add Manual Diff / Slide Review NO; Basophils Absolute Auto 100 /uL (0-100); Basophils Percent Auto 0.9 % (0-2); Eosinophils Absolute Auto 100 /uL (0-450); Eosinophils Percent Auto 1.7 % (2-4); Hematocrit 45.5 % (41-53); Hemoglobin 15.4 g/dL (13.5-17.5); Lymphocytes Absolute Auto 1800 /uL (1100-4500); Lymphocytes Percent Auto 27.4 % (25-40); Mean Corpuscular HGB Conc 33.8 % (30-36); Mean Corpuscular Hemoglobin 29.2 PG (26-34); Mean Corpuscular Volume 86.4 fL (80-100); Monocytes Absolute Auto 600 /uL (0-900); Monocytes Percent Auto 9.4 % (3-14); Neutrophils Absolute Auto 3900 /uL (1500-7000); Neutrophils Percent Auto 60.6 % (50-75); Platelet Count 212 X10^3/uL (150-400); Red Blood Cell Count 5.27 X10^6/uL (4.5-5.9); Red Cell Distribution Width 14.3 % (11.6-14.8); White Blood Cell Count 6.5 X10^3/uL (4.5-11.0)
[2023-09-08 08:28] LABS: Alanine Aminotransferase 34 IU/L (<50); Albumin 4.7 g/dL (3.5-5.0); Albumin Globulin Ratio 1.7 (1.0-2.8); Alkaline Phosphatase 50 U/L (38-126); Aspartate Aminotransferase 26 IU/L (17-59); BUN Creatinine Ratio 23.5 (6-22); Bilirubin Total 0.7 mg/dL (0.2-1.3); Blood Urea Nitrogen 24 mg/dL (9-20); Calcium 9.7 mg/dL (8.4-10.2); Carbon Dioxide 31 mmol/L (22-32); Chloride 101 mmol/L (98-107); Estimated Glomerular Filt Rate > 60 mL/min (>60); Globulin 2.8 g/dL (1.7-4.1); Glucose 95 mg/dL (70-100); HEMOLYSIS < 15 (0-50); Potassium 5.1 mmol/L (3.4-5.1); Sodium 138 mmol/L (137-145); Total Protein 7.5 g/dL (6.3-8.2)
[2023-09-10 07:36] LABS: PSA Free % 21.3 % (.); PSA, Total 2.3 ng/mL (0.0-4.0)
[2023-09-14 08:11] LABS: Percent Free Testosterone 3.97 % (1.50-4.20); Testosterone Free 18.53 ng/dL (5.00-21.00); Testosterone Total 466.8 ng/dL (264.0-916.0)
== END ==
PROVIDERS: PCP Family Medicine; Referring Provider Family Medicine; Visit Provider Family Medicine
DX: R79.89 Other specified abnormal findings of blood chemistry (principal); I10 Essential (primary) hypertension; R97.20 Elevated prostate specific antigen [PSA]
CPT/HCPCS: 36415; 80053; 84153; 84154; 84402; 84403; 85025

== ENCOUNTER → 2023-09-16 10:46 | Outpatient (CLI) | payer OTHER, SELFPAY ==
--- NOTE | 2023-09-16 10:48 | DI.CT.S_ITS ---
PROCEDURE: CT SINUS SCREEN WO CON INDICATIONS: MAXILLARY SINUS CYST TECHNIQUE: Noncontrast 3.0 mm axial images acquired from the frontal sinuses to the mid-sella, with coronal and sagittal reformats. For radiation dose reduction, the following was used: automated exposure control, adjustment of mA and/or kV according to patient size. COMPARISON: [facility], CT, CT SINUS SCREEN WO CON, 03/18/2022, 9:42. FINDINGS: Image quality: Excellent. Maxillary Sinuses: There is again seen a cyst along the floor of the left maxillary sinus. Adjacent bony remodeling change can be seen. The sinuses otherwise appear clear. Ethmoid Air Cells: Moderate mucosal thickening can be seen on the left. There is minimal mucosal thickening seen on the right. Bony demineralization can be seen of several of the ethmoid air cell septations. Sphenoid Sinuses: No bony remodeling or destruction. Sinuses are clear. Frontal Sinuses: There is moderate mucosal thickening within the inferior medial left frontal sinus, with mild mucosal thickening within the inferior medial right frontal sinus. No definite bony changes are seen. Ostiomeatal Complexes: The ostiomeatal complexes are patent, yet they are constitutionally narrowed, with bilateral Gilberto cells. Miscellaneous: Visualized intra-orbital contents are normal. No mahogany bullosa or paradoxical turbinate curvature. There is mild leftward nasal septal deviation, with a leftward directed bony nasal septal spur. IMPRESSION: There is again seen a cyst within the left maxillary sinus, with associated bone remodeling. Paranasal sinus disease can be seen elsewhere, which is worst within the left maxillary sinus and the left ethmoid air cells. The degenerative changes are progressed compared to 2022. The ostiomeatal complexes are patent, yet they are constitutionally narrowed, with bilateral Gilberto cells. Dictated by: Jace Solano M.D. on 09/16/2023 at 10:58 Approved by: Jace Solano M.D. on 09/16/2023 at 11:01
== END ==
LOC: CT 10:47
PROVIDERS: PCP Family Medicine; Referring Provider Otolaryngology; Visit Provider Otolaryngology
DX: J32.4 Chronic pansinusitis (principal); J34.1 Cyst and mucocele of nose and nasal sinus; J34.89 Other specified disorders of nose and nasal sinuses
CPT/HCPCS: 70486

== ENCOUNTER → 2024-03-15 06:41 | Outpatient (CLI) | payer OTHER, SELFPAY ==
[2024-03-15 07:51] LABS: Add Manual Diff / Slide Review NO; Basophils Absolute Auto 100 /uL (0-100); Basophils Percent Auto 1.1 % (0-2); Eosinophils Absolute Auto 200 /uL (0-450); Eosinophils Percent Auto 3.1 % (2-4); Hematocrit 46.5 % (41-53); Hemoglobin 15.5 g/dL (13.5-17.5); Lymphocytes Absolute Auto 1700 /uL (1100-4500); Lymphocytes Percent Auto 27.4 % (25-40); Mean Corpuscular HGB Conc 33.4 % (30-36); Mean Corpuscular Hemoglobin 29.2 PG (26-34); Mean Corpuscular Volume 87.4 fL (80-100); Monocytes Absolute Auto 700 /uL (0-900); Monocytes Percent Auto 10.5 % (3-14); Neutrophils Absolute Auto 3700 /uL (1500-7000); Neutrophils Percent Auto 57.9 % (50-75); Platelet Count 247 X10^3/uL (150-400); Red Blood Cell Count 5.31 X10^6/uL (4.5-5.9); Red Cell Distribution Width 13.7 % (11.6-14.8); White Blood Cell Count 6.3 X10^3/uL (4.5-11.0)
[2024-03-15 08:07] LABS: Hemoglobin A1C% w Est Avg Glu 5.5 % (4.0-6.0)
[2024-03-15 08:42] LABS: Alanine Aminotransferase 40 IU/L (<50); Albumin Globulin Ratio 1.7 (1.0-2.8); Alkaline Phosphatase 54 U/L (38-126); Aspartate Aminotransferase 36 IU/L (17-59); BUN Creatinine Ratio 18.3 (6-22); Bilirubin Total 0.6 mg/dL (0.2-1.3); Blood Urea Nitrogen 21 mg/dL (9-20); Calcium 10.5 mg/dL (8.4-10.2); Carbon Dioxide 31 mmol/L (22-32); Chloride 95 mmol/L (98-107); Cholesterol 209 mg/dL (140-199); Estimated Glomerular Filt Rate > 60 mL/min (>60); Globulin 2.9 g/dL (1.7-4.1); Glucose 99 mg/dL (70-100); HDL Cholesterol 39 mg/dL (40-60); HEMOLYSIS < 15 (0-50); LDL Cholesterol Calculated 108 mg/dL (<100); Potassium 4.9 mmol/L (3.4-5.1); Sodium 135 mmol/L (137-145); Total Protein 7.9 g/dL (6.3-8.2); Triglycerides 308 mg/dL (35-150)
[2024-03-17 07:08] LABS: PSA Free % 15.7 % (.); PSA, Total 3.5 ng/mL (0.0-4.0)
[2024-03-20 09:36] LABS: Percent Free Testosterone 3.35 % (1.50-4.20); Testosterone Free 10.67 ng/dL (5.00-21.00); Testosterone Total 318.5 ng/dL (264.0-916.0)
== END ==
PROVIDERS: PCP Family Medicine; Referring Provider Family Medicine; Visit Provider Family Medicine
DX: R97.20 Elevated prostate specific antigen [PSA] (principal); R73.03 Prediabetes; R79.89 Other specified abnormal findings of blood chemistry; I10 Essential (primary) hypertension; R53.83 Other fatigue
CPT/HCPCS: 36415; 80053; 80061; 83036; 84153; 84154; 84402; 84403; 85025

== ENCOUNTER → 2024-07-07 07:06 | Outpatient (CLI) | payer OTHER, SELFPAY ==
[2024-07-08 07:09] LABS: PSA Free % 17.4 % (.); PSA, Total 2.3 ng/mL (0.0-4.0)
== END ==
PROVIDERS: PCP Family Medicine; Referring Provider Family Medicine; Visit Provider Family Medicine
DX: R97.20 Elevated prostate specific antigen [PSA] (principal); R79.89 Other specified abnormal findings of blood chemistry
CPT/HCPCS: 36415; 84153; 84154; 84402; 84403

== ENCOUNTER → 2024-11-24 07:03 | Outpatient (CLI) | payer OTHER, SELFPAY | PROVIDERS: PCP Family Medicine; Referring Provider Family Medicine; Visit Provider Family Medicine | DX: R79.89 Other specified abnormal findings of blood chemistry (principal) | CPT/HCPCS: 36415; 84402; 84403 ==